=== PATIENT | male | born 1955 | race Caucasian/White ===

== ENCOUNTER → 2018-01-30 16:26 | Outpatient (CLI) | payer BC, SELFPAY ==
--- NOTE | 2018-01-30 16:38 | RAD_ITS ---
XR Chest 2 Views INDICATION: wheezing COMPARISON: None FINDINGS: Heart size and pulmonary vascularity are within normal limits. The lungs are clear without evidence of airspace consolidation or pleural effusion. The osseous structures are grossly unremarkable. RAD/Chest PA and Lateral IMPRESSION: No radiographic evidence of acute intrathoracic disease. at 0059 Reported and signed by: Iris Freeman MD Electronically Signed: Iris Freeman MD at 0:57 EDT Tel , Service support ,
== END ==
PROVIDERS: Family Provider Internal Medicine; PCP Internal Medicine; Visit Provider Internal Medicine
DX: R06.2 Wheezing (principal)
CPT/HCPCS: 71046

== ENCOUNTER → 2018-02-24 07:58 | Outpatient (CLI) | payer BC, SELFPAY ==
--- NOTE | 2018-02-24 08:11 | US_ITS ---
STUDY: ABDOMINAL ULTRASOUND - RIGHT UPPER QUADRANT REASON FOR VISIT: Male, 63 years old. Elevated liver enzymes. TECHNIQUE: Ultrasound evaluation of the right upper quadrant was performed with real-time and static rodriguez-scale imaging. TECHNICAL QUALITY: Adequate. COMPARISON: None. FINDINGS: Liver: The liver measures 17.5 cm. There is increased echogenicity consistent with fatty infiltration. The bile ducts are within normal limits. There is hepatic color flow. The direction of portal flow is hepatopetal. There is no demonstrated mass lesion. Gallbladder: Normal distended gallbladder. The gallbladder wall measures 2.3 mm. There is a negative sonographic Barrera's sign. There is no pericholecystic fluid. There are no gallstones. Common Bile Duct (C.B.D.): The common bile duct measures 3.9 mm. Pancreas: Normal size of the head, body and tail of the pancreas. There is normal echogenicity of the pancreas. There is no demonstrated pancreatic mass or cyst. Right Kidney: Normal size of the right kidney. The right kidney measures 13.7 cm x 5.6 cm x 5.5 cm. Normal renal cortex. The right cortex measures 1.9 cm. 4 renal cysts are seen. The largest measures 5.5 cm x 5.1 cm x 5.0 cm. There is no right hydronephrosis. US/Liver IMPRESSION: Fatty infiltration of the liver. Multiple right renal cysts. Electronically Signed: Santy Mckenna MD at 15:27 EDT Tel [phone], Service support ,
== END ==
PROVIDERS: Family Provider Internal Medicine; PCP Internal Medicine; Visit Provider Internal Medicine
DX: K76.0 Fatty (change of) liver, not elsewhere classified (principal); N28.1 Cyst of kidney, acquired; R74.8 Abnormal levels of other serum enzymes
CPT/HCPCS: 76705

== ENCOUNTER → 2018-03-06 16:36 | Outpatient (CLI) | payer BC, SELFPAY ==
--- NOTE | 2018-03-06 16:39 | CT_ITS ---
STUDY: CT CHEST WITH CONTRAST REASON FOR EXAM: Male, 63 years old. Cough RADIATION DOSAGE (If Supplied By Facility): CTDIvol = ( 20.18 ) mGy, DLP = ( 871.92 ) mGycm TECHNIQUE: Transaxial imaging was performed following intravenous administration of 100 ml of Isovue 300 contrast material. Multiplanar coronal and sagittal images were reformatted. Individualized dose optimization techniques were used for this CT. COMPARISON: None. FINDINGS: The lungs are normal. There is no demonstrated pleural abnormality. Normal heart and pericardium. Coronary artery calcifications are present. Normal mediastinum. Normal hilar regions. Normal enhanced pulmonary arteries. There is mild atherosclerotic calcification of the thoracic aorta. There are multi-level degenerative changes of the thoracic spine. The liver has low attenuation consistent with steatosis. There are multiple low-attenuation regions within the liver consistent with cysts, the largest measuring approximately 4.9 cm. There is incomplete visualization of a cyst within the right kidney, measuring at least 5.[address]/Chest WITH Contrast IMPRESSION: No focal consolidation. Nonacute findings, as detailed above. Electronically Signed: Tom Triana DO at 14:17 EDT Tel , Service support ,
== END ==
PROVIDERS: Family Provider Internal Medicine; PCP Internal Medicine; Visit Provider Internal Medicine
DX: R05 Cough (principal)
CPT/HCPCS: 71260; Q9967

== ENCOUNTER → 2018-04-25 07:44 | Outpatient (CLI) | payer BC, SELFPAY ==
--- NOTE | 2018-04-25 14:21 | PFTCOMP_ITS ---
COMPLETE PULMONARY FUNCTION TEST INTERPRETATION Brief HPI: Patient is a 63 year old male, currently under the care of Dr. Rodas, who presents to [facility] for complete pulmonary function tests secondary to diagnosis of cough. Respiratory therapist reports good effort and reproducible results. Interpretation: Forced expiration spirometry shows no large airways obstructive ventilatory defect with an FEV1 of 107% predicted. There is no significant bronchodilator response by ATS criteria. Spirograms are of good quality and plateau normally. The respiratory flow volume loop shows a normal pattern. Lung volumes by body plethysmography show a normal total lung capacity at 6.71 L , 101% predicted. All other lung volumes are within normal limits. Diffusion capacity by carbon monoxide is normal at 97% predicted. The airway resistance is normal. No previous pulmonary function tests were available for review. Impression: These pulmonary function tests are within normal limits.
== END ==
PROVIDERS: Family Provider Internal Medicine; PCP Internal Medicine; Visit Provider Internal Medicine Critical Care Medicine
DX: R05 Cough (principal)
CPT/HCPCS: 94060; 94726; 94729

== ENCOUNTER → 2019-07-12 07:31 | Outpatient (CLI) | payer SELFPAY ==
[2019-01-18 08:09] VITALS: BMI 34.2
--- NOTE | 2019-07-12 07:40 | CT_ITS ---
STUDY: CARDIAC CALCIUM SCORING - CT CHEST REASON FOR EXAM: Male, 64 years old. Coronary artery atherosclerosis screening RADIATION DOSAGE (If Supplied By Facility): CTDIvol = ( 12.19 ) mGy, DLP = ( 243.79 ) mGycm TECHNIQUE: Axial non-enhanced images were acquired through the heart for the sole purpose of measuring coronary artery calcium. Individualized dose optimization techniques were used for this CT. COMPARISON: 03/06/[address] FINDINGS: Visualized surrounding anatomy: Small low-density lesions of the liver likely represent simple cysts, stable since prior chest CT. Mild atherosclerosis of the aortic arch. Left Main Coronary Artery: 0 Left Anterior Descending Artery: 346 Left Circumflex Artery: 83.4 Right Coronary Artery: 6.56 Other: n/a Total Calcium Score: 436 CT/Limited Chest CT w/CCTA IMPRESSION: A Calcium Score of 436 (left anterior descending dominant) places the patient in the approximate 76th percentile, based on the ELLER data calculator. Extensive plaque burden with high likelihood of a least one significant coronary artery stenosis. Cardiology consultation suggested. Please go to: [email or web address] , for a description of the calculator. Electronically Signed: Rian Prado MD ([place]) at 8:58 EDT , Service support ,
[2019-07-12 07:47] VITALS: BP 123/79; PULSE 53; RESP 16; O2SAT 98; BMI 32.3
--- NOTE | 2019-07-12 16:48 | CA.SCORE ---
Calcium Scoring Date of Study:: 07/12/19 Coronary Calcium Scoring: High-resolution Computed Tomographic imaging of the chest was performed on [07/12/2019.], with particular attention paid to the coronary arteries. Images from the examination were analyzed for the presence and extent of coronary artery calcification , using coronary calcium quantification software. The patient tolerated the procedure well and there were no complications. The results of the coronary calcification analysis are provided below. - Findings Left Main (LM): 0 Left Anterior Descending (LAD): 346 Left Circumflex (LCX): 84 Right Coronary Artery (RCA): 6 Total Agatston Score: 436 Percentile Rankin-90th percentile Calcium Scoring Interpretation: 0 No identifiable atherosclerotic plaque. Very low cardiovascular disease risk. <5% chance of presence coronary artery disease A Negative Examination 1-10 Minimal Plaque burden. Significant coronary artery disease very unlikely. 11-100 Mild plaque burden. Likely mild or minimal coronary atherosclerosis. 101-400 Moderate plaque burden Moderate non-obstructive coronary artery disease highly likely. Over 400 Extensive plaque burden. High likelihood of at least one significant coronary stenosis (>50% diameter) Calcium Score: 101 - 400 Moderate non-obstructive coronary artery disease highly like - The above is suggestive of moderate nonobstructive coronary disease. Full assessment of the cardiac risk should include assessment of all conventional risk factors and the scores and percentile rankings reported herein should be evaluated in this context.
== END ==
PROVIDERS: Family Provider Internal Medicine; PCP Internal Medicine; Referring Provider Internal Medicine; Visit Provider Internal Medicine
DX: Z13.6 Encounter for screening for cardiovascular disorders (principal); E78.00 Pure hypercholesterolemia, unspecified; E11.9 Type 2 diabetes mellitus without complications; I10 Essential (primary) hypertension
CPT/HCPCS: 75571; 76380

== ENCOUNTER → 2019-08-22 11:08 | Outpatient (CLI) | payer BC, SELFPAY ==
[2019-08-22 08:42] VITALS: BMI 45.3
[2019-08-22 13:12] LABS: AST(SGOT) 62 U/L (15-37); Alanine Aminotransfer ALT/SGPT 39 U/L (16-61); Albumin, Serum 4.1 g/dL (3.2-5.0); Alkaline Phosphatase 58 U/L (45-117); Bilirubin, Direct 0.27 mg/dL (0.00-0.30); Cholesterol 120 mg/dL (200); Globulin 3.4 g/dL (2.2-4.2); High Density Lipoprotein 46 mg/dL; Protein, Total 7.5 g/dL (6.4-8.2); Triglycerides 105 mg/dL; Very Low Density Lipoprotein 21 mg/dL (5-40)
== END ==
PROVIDERS: Family Provider Internal Medicine; PCP Internal Medicine; Referring Provider Internal Medicine Cardiovascular Disease; Visit Provider Internal Medicine Cardiovascular Disease
DX: R93.1 Abnormal findings on diagnostic imaging of heart and coronary circulation (principal); I10 Essential (primary) hypertension
CPT/HCPCS: 36415; 80061; 80076

== ENCOUNTER → 2019-09-05 06:01 | Outpatient (CLI) | payer BC, SELFPAY ==
[2019-08-22 08:42] VITALS: BMI 45.3
--- NOTE | 2019-09-05 13:59 | STRESSREP ---
Stress Test Report Exercise myocardial perfusion stress test. 64-year-old man with a history of an abnormal calcium score. Stress protocol: Resting EKG demonstrates normal sinus rhythm with a rate of 63 bpm normal intervals are noted resting blood pressures 144/82 mmHg. Patient exercised according to regular Kale protocol for total duration of 9 minutes and 30 seconds. The maximum heart rate attained was 150 bpm which was 96% of maximum predicted heart rate the maximum workload was 10.9 metabolic equivalents. At rest there were no ST or T wave changes noted to suggest ischemia peak exercise upsloping ST changes only were noted with no meet the criteria for ischemia. The resting blood pressures 144/82 with a peak blood pressure 178/78 mmHg. No clinical angina was noted the test was terminated due to dyspnea. Myocardial perfusion protocol. 15.0 mCi of technetium 99m sestamibi was injected at rest. The patient exercised according to regular Kale protocol for 9 minutes at peak exercise 45.0 mCi of technetium 99m sestamibi was injected stress images were obtained stress and rest images were reconstructed and compared in the short axis vertical and horizontal long axis. Gated images were also obtained per Perfusion SPECT analysis: Review of the stress images demonstrate normal uptake of tracer noted in all the rest of myocardium the resting images similar demonstrate normal uptake of tracer noted in all areas of the myocardium. No areas of reversibility or no suggest ischemia no previous infarct is noted. Gated SPECT analysis: The gated ejection fraction is noted to be 67%. Conclusion: Normal exercise myocardial perfusion stress test at a high workload. No clinical angina noted. No arrhythmias noted. Preserved ejection fraction.
== END ==
PROVIDERS: Family Provider Internal Medicine; PCP Internal Medicine; Referring Provider Internal Medicine Cardiovascular Disease; Visit Provider Internal Medicine Cardiovascular Disease
DX: R93.1 Abnormal findings on diagnostic imaging of heart and coronary circulation (principal)
CPT/HCPCS: 78452; 93017; A9500

== ENCOUNTER → 2024-10-31 | Outpatient (CLI) | payer MEDICARE, BC, SELFPAY ==
--- NOTE | 2024-10-31 10:08 | US_ITS ---
PROCEDURES: ULTRASOUND AORTA REASON FOR EXAM: Male, 69 years old. ULTRASOUND AORTA -- Family history of abdominal aortic aneurysm TECHNIQUE: Ultrasound evaluation of the aorta was performed with real-time and static rodriguez-scale imaging. COMPARISON: None. FINDINGS: There is no elongation or tortuosity of the abdominal aorta. Aorta measures: Proximal 1.6 cm. Middle 2.1 cm. Distal 1.6 cm. Aorta measure transversely: Proximal 2.4 cm. Middle 1.9 cm. Distal 2.6 cm. Right iliac artery measures: 1.2 cm. Right iliac artery measure transversely: 1.1 cm. Left iliac artery measures: 1.9 cm. Left iliac artery measure transversely: 2.1 cm. There is no demonstrated aneurysm.. US/Aorta IMPRESSION: No evidence of aneurysm. Aorta is mildly irregular related to atherosclerosis. Electronically Signed: Mariano Hdez MD at 21:04 EST ,
== END | disposition home or self-care (01) ==
LOC: US 10:05
PROVIDERS: PCP Internal Medicine; Referring Provider Internal Medicine; Visit Provider Internal Medicine
DX: Z00.00 Encounter for general adult medical examination without abnormal findings (principal); Z82.49 Family history of ischemic heart disease and other diseases of the circulatory system
CPT/HCPCS: 76775

== ENCOUNTER → 2025-07-08 | Outpatient (CLI) | payer MEDICARE, BC, SELFPAY ==
--- NOTE | 2025-07-08 09:48 | US_ITS ---
PROCEDURE: ABD LIMITED W/ ELASTOGRAPHY REASON FOR EXAM: ELASTOGRAPHY/ABDOMINAL US LIMITED - FATTY LIVER COMPARISON: None. TECHNIQUE: Procedure Code: [id number] Modality: US Procedure: ABD LIMITED W/ ELASTOGRAPHY Right upper quadrant abdominal ultrasound. Bruno ElastQ Imaging shear wave elastography for non-invasive assessment of liver tissue stiffness. Bruno EPIQ Elite. FINDINGS: LIVER: Size: Enlarged (hepatomegaly) Length: 18.3 cm Echotexture: Mild degree of fatty infiltration of the liver. Contour: Normal Lesions: There is a 4.6 cm 4.6 cm 5.3 cm septated cyst in the right lobe of the liver. There is a 1.1 cm 1.0 cm x 0.9 cm cyst in the left lobe of the liver. Elastography: EQI Med: 4 kPa EQI Med Jose R: 1.15 m/s IQR/Med: 8.8 %* GALLBLADDER: No stones sludge wall thickening or tenderness. COMMON BILE DUCT: Normal measuring 2.2 mm . PANCREAS: Normal The right kidney measures 14.2 cm 8.3 cm 6.2 cm. Renal cortex measures 1.4 cm. 3 cysts are seen. The largest cyst measures 7.9 cm x 8 cm 6.5 cm. This is in the upper pole. No right upper quadrant ascites. US/ABD Limited w/ Elastography IMPRESSION: NO TO MILD HEPATIC FIBROSIS Mild degree of fatty infiltration of the liver. Hepatic cysts. Right renal cysts. Reference Values: SRU <1.37 m/s (5.7kPa): No to mild fibrosis 1.37 m/s - 2.2 m/s: Moderate to severe fibrosis >2.2 m/s (15kPa): Significant fibrosis / cirrhosis METAVIR Score F2 or higher: 1.34 m/s (5.7kPa) F3 or higher: 1.55 m/s (7.3kPa) F4: 1.80 m/s (10kPa) * If the IQR/Med is >30%, the variance in the measurements is a large and the a ccuracy of the measurement may be in question. Reading Location: [place] [id number]
== END | disposition home or self-care (01) ==
LOC: US 09:44
PROVIDERS: PCP Internal Medicine; Referring Provider Internal Medicine; Visit Provider Internal Medicine
DX: K76.0 Fatty (change of) liver, not elsewhere classified (principal)
CPT/HCPCS: 76705; 76981

== ENCOUNTER → 2025-10-14 | Outpatient (CLI) | payer MEDICARE, BC, SELFPAY ==
[2025-10-14 12:10] LABS: Hematocrit 44.7 % (40-54); Hemoglobin 15.3 g/dL (13.0-16.5); Immature Granulocytes Count 0.010 X10^3/uL (0.0-0.0); Mean Corp Hgb Conc 34.2 g/dL (32-36); Mean Corpuscular Volume 91.8 fL (80-94); Mean Platelet Vol. 12.2 fl (6.2-12.0); NRBC Flagged by Analyzer 0 % (0-5); Platelet Count 131 K/mm3 (150-450); RBC Distribution Width CV 12.0 % (11.6-14.6); RBC Distribution Width SD 40.1 fl (35.1-43.9); Red Blood Count 4.87 M/mm3 (4.6-6.2); White Blood Count 4.5 K/mm3 (4.4-11.0)
[2025-10-14 12:25] LABS: Creatinine, Urine (random) 83.00 mg/dL (39.00-259.00); Microalbumin,Random Urine 34.4 mg/L (<20 mg/L)
[2025-10-14 12:40] LABS: AST(SGOT) 54 U/L (<=37); Alanine Aminotransfer ALT/SGPT 32 U/L (<=46); Albumin, Serum 4.7 g/dL (3.4-4.8); Alkaline Phosphatase 46 U/L (40-129); Anion Gap 11 (7-18); BUN 13 mg/dL (4-19); BUN/Creat Ratio 11.6 RATIO (10-20); Calcium,Total 9.2 mg/dL (7.6-11.0); Carbon Dioxide 24.5 mmol/L (20.0-29.0); Chloride 104 mmol/L (96-106); Cholesterol 171 mg/dL (<=200); Globulin 2.4 g/dL (2.2-4.2); Glucose 124 mg/dL (70-99); Hepatitis C Antibody Nonreactive (Nonreactive); Low Density Lipoprotein Calc. 113 mg/dL; Potassium 4.2 mmol/L (3.5-5.1); Triglycerides 70 mg/dL; Very Low Density Lipoprotein 14 mg/dL (5-40); Vitamin D,25 Hydroxy 41.5 ng/mL (30-100); cholesterol:hdl ratio screen 3.81
== END | disposition home or self-care (01) ==
LOC: CIMLAB 09:46
PROVIDERS: PCP Internal Medicine; Referring Provider Internal Medicine; Visit Provider Internal Medicine
DX: Z11.59 Encounter for screening for other viral diseases (principal); E11.9 Type 2 diabetes mellitus without complications; E55.9 Vitamin D deficiency, unspecified; E78.00 Pure hypercholesterolemia, unspecified; I10 Essential (primary) hypertension
CPT/HCPCS: 36415; 80053; 80061; 82043; 82306; 82570; 83036; 84443; 85025; 86803